=== PATIENT | female | born 1970 | race Asian ===

== ENCOUNTER 2017-12-06 22:02 | Emergency (ER) | payer OTHER ==
[~2017-12-06 22:02] MED LIST: LYRICA75 M1 PO; NEURONTIN300 M1 PO; PERCOCET 5-3251 EACH PO; PROTONIX 40MG T40 MG PO; VALTREX1000 MG PO
--- NOTE | 2017-12-06 22:38 | ED GI/GU/ABDOMINAL COMPLAINT ---
History of Present Illness General Chief Complaint: General Adult Stated Complaint: "ABD PAIN, BACK PAIN" Source: patient Exam Limitations: no limitations Vital Signs & Intake/Output Vital Signs & Intake/Output Vital Signs Date Time Temp Pulse Resp B/P B/P Pulse O2 O2 Flow FiO2 Mean Ox Delivery Rate 12/06 2344 97.0 89 18 137/68 98 Room Air 12/06 2207 98.4 67 22 118/80 98 Room Air Allergies Coded Allergies: NO KNOWN ALLERGIES (12/06/17) Reconcile Medications Gabapentin (Neurontin) 300 MG CAPSULE 1 CAP PO TID PRN POST HERPETIC NEURALGIA Oxycodone HCl/Acetaminophen (Percocet 5-325 MG Tablet) 5 MG-325 MG TABLET 1-2 TAB PO Q6P PRN PAIN Valacyclovir HCl (Valtrex) 1,000 MG TABLET 1 TAB PO TID SHINGLES Triage Note: PER PT PAIN TO L ABD WAS SEEN FOR SHINGLES AND PAIN IS "UP INSIDE" Triage Nurses Notes Reviewed? yes ? n Is pt currently ? No Duration: week(s):, waxing and waning Timing: recent history Quality/Severity: "gas" Location: epigastric Radiation: no radiation Activities at Onset: taking medicine for shingles Modifying Factors: Worsens With: palpation. Associated Symptoms: abdominal pain, nausea/vomiting HPI: 47 yo woman h/o shingles on left abdomen, diagnosed last week, presents with 1 week history of mid epigastric bloating, gas and epigastric discomfort. She notes no pain, chest pain, dyspnea, chills. She is otherwise well. She has no nausea, dysuria, fever, vomiting. Past History Travel History Traveled to [place] past 21 day No Medical History Any Pertinent Medical History? 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 No Review of Systems Review of Systems Constitutional: Reports: no symptoms. EENTM: Reports: no symptoms. Respiratory: Reports: no symptoms. Cardiovascular: Reports: no symptoms. GI: Reports: no symptoms. Genitourinary: Reports: no symptoms. Musculoskeletal: Reports: no symptoms. Skin: Reports: no symptoms. Neurological/Psychological: Reports: no symptoms. Hematologic/Endocrine: Reports: no symptoms. Immunologic/Allergic: Reports: no symptoms. All Other Systems: Reviewed and Negative Physical Exam Physical Exam General Appearance: well developed/nourished, no apparent distress Head: atraumatic, normal appearance Eyes: Bilateral: normal appearance. Ears, Nose, Throat, Mouth: moist mucous membrane Neck: normal inspection, supple, full range of motion Respiratory: normal breath sounds, chest non-tender, no respiratory distress, quiet respiration, lungs clear Cardiovascular: regular rate/rhythm Gastrointestinal: normal bowel sounds, soft, non-tender, no organomegaly, no tenderness to deep, firm palpation. Back: normal inspection Extremities: normal range of motion Neurologic/Psych: no motor/sensory deficits, awake, alert, oriented x 3 Skin: well healed shingles lesions on left abdomen. Core Measures ACS in differential dx? No Sepsis Present: No Sepsis Focused Exam Completed? No Progress Differential Diagnosis: med side effect, viral syndrome vs other. Plan of Care: Orders Procedure Date/time Status TROPONIN LEVEL 12/06 2214 Complete LIPASE 12/06 2214 Complete HEPATIC FUNCTION PANEL 12/06 2214 Complete HUMAN BETA HCG SCREEN 12/06 2214 Complete CBC WITHOUT DIFFERENTIAL 12/06 2214 Complete BASIC METABOLIC PANEL 12/06 2214 Complete AMYLASE 12/06 2214 Complete EKG 12/06 2214 Active Laboratory Tests 12/06/17 2253: Anion Gap 17 H, Estimated GFR > 60, BUN/Creatinine Ratio 21.4, Glucose 100 H, Calcium 9.5, Total Bilirubin 0.4, Direct Bilirubin 0.3, AST 24, ALT 35, Alkaline Phosphatase 74, Troponin I < 0.01, Total Protein 8.0, Albumin 4.5, Amylase 64, Lipase 90, Total Beta HCG NEGATIVE, CBC w Diff NO MAN DIFF REQ, RBC 4.96, MCV 83.0, MCH 27.5, RDW 13.5, MPV 8.6, Gran % 59.4, Lymphocytes % 33.2, Monocytes % 5.2, Eosinophils % 1.4, Basophils % 0.8, Absolute Granulocytes 3.7, Absolute Lymphocytes 2.1, Absolute Monocytes 0.3, Absolute Eosinophils 0.1, Absolute Basophils 0.1, PUBS MCHC 33.1 Initial ED EKG: normal axis, normal intervals, normal p-waves, normal QRS complex, normal sinus rhythm Departure Departure Disposition: HOME OR SELF CARE Condition: Stable Clinical Impression Primary Impression: Abdominal pain Referrals: Samson VAUGHN,Mohit Judd (PCP/Family) Departure Forms: Customer Survey General Discharge Information Comments 12/06/17, 23:52... ct scan discussed, but defered since patient has no abdominal pain or tenderness on exam. labs benign and she is feeling better after supportive medications.
[2017-12-06 23:02] LABS: ABSOLUTE BASOPHIL COUNT 0.1 /CUMM (0.0-0.2); ABSOLUTE EOSINOPHIL COUNT 0.1 /CUMM (0.0-0.7); ABSOLUTE GRANULOCYTE CT 3.7 /CUMM (1.4-6.5); ABSOLUTE LYMPH COUNT 2.1 /CUMM (1.2-3.4); ABSOLUTE MONOCYTE COUNT 0.3 /CUMM (0.10-0.60); BASOPHIL % 0.8 % (0.0-2.0); EOSINOPHIL % 1.4 % (0-5); GRANULOCYTE % 59.4 % (42.2-75.2); HEMATOCRIT 41.2 % (37-47); MEAN CORPUSCULAR HGB 27.5 PG (27.0-31.0); MEAN CORPUSCULAR HGB CONC 33.1 G/DL (33.0-37.0); MEAN PLATELET VOLUME 8.6 FL (7.4-10.4); PLATELET COUNT 204 /CUMM (130-400); RBC DISTRIBUTION WIDTH 13.5 % (11.5-14.5); RED BLOOD CELL CT 4.96 /CUMM (4.20-5.40); WHITE BLOOD CELL COUNT 6.2 /CUMM (4.8-10.8)
[2017-12-06 23:44] VITALS: BP 137/68
== END 2017-12-06 23:51 ==
LOC: ERH 22:02
PROVIDERS: Pediatrics
DX: R10.13 Epigastric pain (principal)
CPT/HCPCS: 93005; 93010

== ENCOUNTER 2018-01-15 17:56 | Emergency (ER) | payer OTHER ==
[~2018-01-15] VITALS: Ht 152.4 cm; Wt 81.6 kg
[2018-01-15 19:28] LABS: PT 10.1 SEC (9.4-12.5); PTT 33 SEC (25-37)
[2018-01-15 19:29] LABS: ABSOLUTE BASOPHIL COUNT 0 /CUMM (0.0-0.2); ABSOLUTE EOSINOPHIL COUNT 0 /CUMM (0.0-0.7); ABSOLUTE GRANULOCYTE CT 4.2 /CUMM (1.4-6.5); ABSOLUTE LYMPH COUNT 1.5 /CUMM (1.2-3.4); ABSOLUTE MONOCYTE COUNT 0.4 /CUMM (0.10-0.60); BASOPHIL % 0.4 % (0.0-2.0); EOSINOPHIL % 0.3 % (0-5); HEMATOCRIT 40.5 % (37-47); MEAN CORPUSCULAR HGB 27.6 PG (27.0-31.0); MEAN CORPUSCULAR HGB CONC 32.8 G/DL (33.0-37.0); MEAN CORPUSCULAR VOLUME 84.3 FL (81.0-99.0); MEAN PLATELET VOLUME 9.2 FL (7.4-10.4); PLATELET COUNT 227 /CUMM (130-400); RBC DISTRIBUTION WIDTH 14.4 % (11.5-14.5); RED BLOOD CELL CT 4.81 /CUMM (4.20-5.40); WHITE BLOOD CELL COUNT 6.2 /CUMM (4.8-10.8)
--- NOTE | 2018-01-15 21:01 | ED GI/GU/ABDOMINAL COMPLAINT ---
History of Present Illness General Chief Complaint: General Adult Stated Complaint: RECTAL BLEEDING Source: patient, family, old records Exam Limitations: no limitations Vital Signs & Intake/Output Vital Signs & Intake/Output Vital Signs Date Time Temp Pulse Resp B/P B/P Pulse O2 O2 Flow FiO2 Mean Ox Delivery Rate 01/15 2055 Room Air 01/15 1846 98.3 88 18 135/76 98 Room Air Allergies Coded Allergies: NO KNOWN ALLERGIES (12/06/17) Reconcile Medications Gabapentin (Neurontin) 300 MG CAPSULE 1 CAP PO TID PRN POST HERPETIC NEURALGIA Oxycodone HCl/Acetaminophen (Percocet 5-325 MG Tablet) 5 MG-325 MG TABLET 1-2 TAB PO Q6P PRN PAIN Valacyclovir HCl (Valtrex) 1,000 MG TABLET 1 TAB PO TID SHINGLES Triage Note: 47 YO FEMALE TO TRIAGE C/O RECTAL BLEEDING. STATES BRB IN TOILET PAPER SINCE SATURDAY. DENIES ABD PAIN, STATES +ABD BLOATING. PA IN TRIAGE FOR EVAL. DENIES NVD. Triage Nurses Notes Reviewed? yes LMP (ages 10-50): unknown ? n Is pt currently ? No Onset: 5 days Duration: day(s):, continues in ED Timing: recent history Quality/Severity: burning, mild Location: generalized abdomen Radiation: no radiation Activities at Onset: defecating Prior Abdominal Problems: none Past Sexual History: Unobtainable at this time Modifying Factors: Improves With: rest. Worsens With: defecating. HPI: 5 days prior to admission patient complains of bright red blood per rectum with stooling usually with morning bowel movements. She reports moving her bowels 2 times per day with no blood with the second movement. She also complains of generalized abdominal burning prior to moving her bowels. She denies fever chills nausea vomiting diarrhea chest pain cough shortness breath headache dysuria rash. Past History Travel History Traveled to [place] past 21 day No Medical History Any Pertinent Medical History? 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 No Review of Systems Review of Systems Constitutional: Reports: no symptoms. EENTM: Reports: no symptoms. Respiratory: Reports: no symptoms. Cardiovascular: Reports: no symptoms. GI: Reports: see HPI, abdominal pain, bloody stool. Genitourinary: Reports: no symptoms. Musculoskeletal: Reports: no symptoms. Skin: Reports: no symptoms. Neurological/Psychological: Reports: no symptoms. Hematologic/Endocrine: Reports: no symptoms. Immunologic/Allergic: Reports: no symptoms. All Other Systems: Reviewed and Negative Physical Exam Physical Exam General Appearance: well developed/nourished, alert, awake, anxious Head: atraumatic, normal appearance Eyes: Bilateral: normal appearance, PERRL, EOMI, normal inspection. Ears, Nose, Throat, Mouth: hearing grossly normal, moist mucous membrane Neck: normal inspection, supple, full range of motion, normal alignment Respiratory: normal breath sounds, chest non-tender, no respiratory distress, quiet respiration, lungs clear Cardiovascular: regular rate/rhythm, normal peripheral pulses, norml femoral pulses equa Peripheral Pulses: 4+ carotid (R), 4+ carotid (L) Gastrointestinal: normal bowel sounds, soft, non-tender, no organomegaly Rectal: normal rectal tone, hemmorrhoids, external hemorrhoid @ 6PM no active bleeding Back: normal inspection, normal range of motion Extremities: normal range of motion, no ligament instability Neurologic/Psych: no motor/sensory deficits, awake, alert, oriented x 3, normal gait, normal mood/affect, 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 No Sepsis Present: No Sepsis Focused Exam Completed? No Progress Differential Diagnosis: bowel obstruction, gastritis, hemorrhoids, PUD/GERD Plan of Care: Orders Procedure Date/time Status PARTIAL THROMBOPLASTIN TIME 01/15 1819 Complete PROTHROMBIN TIME 01/15 1819 Complete COMPREHENSIVE METABOLIC PANEL 01/15 1819 Complete CBC WITHOUT DIFFERENTIAL 01/15 1819 Complete TYPE & SCREEN (NOT X-MATCH) 01/15 1819 Active Laboratory Tests 01/15/18 1850: Anion Gap 12, Estimated GFR > 60, BUN/Creatinine Ratio 25.7 H, Glucose 102 H, Calcium 9.7, Total Bilirubin 0.3, AST 21, ALT 36, Alkaline Phosphatase 64, Total Protein 7.9, Albumin 4.4, Globulin 3.5, Albumin/Globulin Ratio 1.3, PT 10.1, INR 0.96, APTT 33, CBC w Diff NO MAN DIFF REQ, RBC 4.81, MCV 84.3, MCH 27.6, MCHC 32.8 L, RDW 14.4, MPV 9.2, Gran % 68.0, Lymphocytes % 24.9, Monocytes % 6.4, Eosinophils % 0.3, Basophils % 0.4, Absolute Granulocytes 4.2, Absolute Lymphocytes 1.5, Absolute Monocytes 0.4, Absolute Eosinophils 0, Absolute Basophils 0 Initial ED EKG: none Departure Departure Time of Disposition: 2104 Disposition: HOME OR SELF CARE Condition: Stable Clinical Impression Primary Impression: External hemorrhoid Referrals: Samson VAUGHN,Mohit Judd (PCP/Family) Pantera VAUGHN,Chuck Browne Call for GI follow up Departure Forms: Customer Survey General Discharge Information Prescriptions: Current Visit Scripts Anusol Hc (Anusol-Hc) 1 SUP RC BID #28 SUP Hydrocortisone (Anusol-Hc) 1 FORREST TOP BID #30 GM apply to affected area(s)
[2018-01-15] MEDS ORDERED: ANUSOL-HC30 GM TOP (21:06)
[2018-01-15] MEDS ORDERED: ANUSOL-HC25 M1 RC (21:06)
[2018-01-15 21:13] VITALS: BP 128/73
== END 2018-01-15 21:13 ==
LOC: ERH 17:56
PROVIDERS: Physician Assistant Medical
DX: K64.4 Residual hemorrhoidal skin tags (principal)
CPT/HCPCS: 36415; 86902; 86920; 86922